=== PATIENT | male | born 1980 | race African-American/Black ===

== ENCOUNTER 2023-11-05 22:10 | Emergency (ER) | payer MEDICAID ==
[~2023-11-05] VITALS: Ht 182.9 cm; Wt 114.0 kg
[~2023-11-05 22:10] MED LIST: keppra; klonopin; risperdal; seroquel
[2023-11-05 22:17] VITALS: TEMP 98.7; O2SAT 96
[2023-11-05 23:25] LABS: BG BASE EXCESS -1.8 mmol/L (-2.0-2.0); BG CARBOXYHEMOGLOBIN 4.2 % (0.5-1.5); BG DEOXYHEMOGLOBIN 4.9 % (0.0-5.0); BG FRACTION INSPIRED OXYGEN 36; BG HCO3 ACT 26.4 mmol/L (22.0-26.0); BG METHEMOGLOBIN 0.1 % (0.0-1.5); BG OXYGEN SATURATION 94.9 % (92.0-98.5); BG OXYHEMOGLOBIN 90.8 % (94.0-97.0); BG PH 7.261 (7.350-7.450); BG PO2 87.8 mmHg (75.0-100.0); BG TOTAL HEMOGLOBIN 14.1 g/dL (12.0-18.0)
[2023-11-05 23:42] LABS: BASOPHILS % 0.6 % (0.0-2.0); DIFFERENTIAL COMMENT 0; HEMATOCRIT. 39.5 % (42.0-52.0); HEMOGLOBIN. 13.5 g/dL (14.0-18.0); MEAN CORPUSCULAR HEMOGLOBIN 34.6 pg (28.0-32.0); MEAN CORPUSCULAR HGB CONC 34.2 g/dL (31.0-37.0); MEAN CORPUSCULAR VOLUME 101.3 fL (80.0-94.0); MEAN PLATELET VOLUME 7.9 fl (7.4-10.4); MONOCYTES % 5.6 % (2.0-8.0); NEUTROPHILS % 40.8 % (40.0-76.0); PLATELET 194 x1000/uL (130-400); RED CELL DISTRIBUTION WIDTH 14.1 % (11.6-14.6)
[2023-11-05] MEDS: SODIUM CHLORIDE 0.9% 1,000 ML IV ONE (23:45)
[2023-11-06 00:01] LABS: ALANINE AMINOTRANSFERASE 40 IU/L (10-49); ALBUMIN 4.2 g/dL (3.2-4.8); ASPARTATE AMINOTRANSFERASE 37 IU/L (<34); BILIRUBIN TOTAL 0.3 mg/dL (0.1-1.0); CALCIUM 8.2 mg/dL (8.7-10.4); CARBON DIOXIDE 25 mEq/L (21-32); CHLORIDE 108 mEq/L (98-107); CREATININE 0.9 mg/dL (0.6-1.3); ETHANOL BLOOD 233 mg/dL (<10); GLUCOSE 104 mg/dL (70-105); POTASSIUM 3.6 mEq/L (3.5-5.1); PROTEIN TOTAL 7.6 g/dL (6.0-8.3); SODIUM 141 mEq/L (136-145); UREA NITROGEN BLOOD 10 mg/dL (9-23)
[2023-11-06 00:47] LABS: TROPONIN I HIGH SENSITIVITY 10 ng/L (3.0-53)
[2023-11-06] MEDS: HYDRALAZINE 20MG/ML VIAL IV ONE ×2 (03:11→04:55)
[2023-11-06 04:30] VITALS: BP 186/122; PULSE 93; RESP 12
== END 2023-11-06 05:25 | disposition left against medical advice (07) ==
LOC: ER 22:10 → CANBEDREQ 11-08 20:47
DX: F10.129 Alcohol abuse with intoxication, unspecified (principal); R41.82 Altered mental status, unspecified; F32.9 Major depressive disorder, single episode, unspecified; F14.10 Cocaine abuse, uncomplicated; Z77.22 Contact with and (suspected) exposure to environmental tobacco smoke (acute) (chronic); V93.89XA Other injury due to other accident on board unspecified watercraft, initial encounter; Y93.89 Activity, other specified; Y90.7 Blood alcohol level of 200-239 mg/100 ml
CPT/HCPCS: 80053; 80320; 85025; 84484; 36415; 82805; 82375; 96361; 99285; 36600; 71045; 70450; 93005; 96374; 96376; J0360; J7030; G0480

== ENCOUNTER 2025-06-17 00:20 | Emergency (ER) | payer MEDICAID ==
[~2025-06-17] VITALS: Ht 170.2 cm; Wt 102.0 kg
[2025-06-17 00:25] VITALS: O2SAT 95
[2025-06-17 00:26] VITALS: BP 152/86; PULSE 88; RESP 18; TEMP 36.7; O2SAT 98
[2025-06-17 01:01] LABS: BASOPHILS % 1.2 % (0.0-2.0); EOSINOPHILS % 3.5 % (0.0-5.0); HEMATOCRIT. 39.7 % (42.0-52.0); HEMOGLOBIN. 13.2 g/dL (14.0-18.0); LYMPHOCYTES % 48.9 % (20.0-50.0); MEAN PLATELET VOLUME 8.0 fl (7.4-10.4); MONOCYTES % 6.8 % (2.0-8.0); NEUTROPHILS % 39.6 % (40.0-76.0); PLATELET 247 x1000/uL (130-400); RED BLOOD CELL COUNT 4.08 mill/uL (4.7-6.1); RED CELL DISTRIBUTION WIDTH 14.6 % (11.6-14.6)
[2025-06-17 01:13] LABS: CREATININE 1.0 mg/dL (0.6-1.3); UREA NITROGEN BLOOD 11 mg/dL (9-23)
[2025-06-17 01:14] LABS: ETHANOL BLOOD 175 mg/dL (<10)
[2025-06-17] MEDS ORDERED: OLANZAPINE 10 MG/VIAL IM ONE (01:30)
[2025-06-17 03:06] LABS: *AMPHETAMINES SCREEN URINE NEGATIVE (NEGATIVE); *BARBITURATES SCREEN URINE NEGATIVE (NEGATIVE); *BENZODIAZEPINES SCREEN URINE NEGATIVE (NEGATIVE); *COCAINE SCREEN URINE NEGATIVE (NEGATIVE); METHADONE URINE SCREEN NEGATIVE (NEGATIVE); OPIATES URINE SCREEN NEGATIVE (NEGATIVE); PHENCYCLIDINE URINE SCREEN NEGATIVE (NEGATIVE)
[2025-06-17 03:07] LABS: CANNABINOID URINE SCREEN NEGATIVE (NEGATIVE); ECSTASY MDMA SCREEN URINE NEGATIVE (NEGATIVE)
== END 2025-06-17 01:45 | disposition home or self-care (01) ==
LOC: ER 00:20
DX: R45.851 Suicidal ideations (principal); I10 Essential (primary) hypertension; J45.909 Unspecified asthma, uncomplicated; Z79.899 Other long term (current) drug therapy
CPT/HCPCS: 36415; 80048; 80305; 80307; 80320; 80329; 85025; 93005; 99281; 99284; G0480

== ENCOUNTER 2025-07-10 14:11 | Emergency (ER) | payer MEDICAID ==
[~2025-07-10] VITALS: Ht 180.3 cm; Wt 109.0 kg
[2025-07-10 15:49] LABS: BASOPHILS % 0.5 % (0.0-2.0); EOSINOPHILS % 1.2 % (0.0-5.0); HEMATOCRIT. 36.7 % (42.0-52.0); HEMOGLOBIN. 12.6 g/dL (14.0-18.0); LYMPHOCYTES % 27.4 % (20.0-50.0); MEAN PLATELET VOLUME 8.4 fl (7.4-10.4); MONOCYTES % 5.8 % (2.0-8.0); NEUTROPHILS % 65.1 % (40.0-76.0); PLATELET 220 x1000/uL (130-400); RED BLOOD CELL COUNT 3.73 mill/uL (4.7-6.1); RED CELL DISTRIBUTION WIDTH 14.1 % (11.6-14.6)
[2025-07-10 15:56] LABS: CREATININE 1.1 mg/dL (0.6-1.3); ETHANOL BLOOD 255 mg/dL (<10); UREA NITROGEN BLOOD 18 mg/dL (9-23)
[2025-07-10 16:13] LABS: *AMPHETAMINES SCREEN URINE NEGATIVE (NEGATIVE); *BARBITURATES SCREEN URINE NEGATIVE (NEGATIVE); *BENZODIAZEPINES SCREEN URINE NEGATIVE (NEGATIVE); *COCAINE SCREEN URINE NEGATIVE (NEGATIVE); METHADONE URINE SCREEN NEGATIVE (NEGATIVE); OPIATES URINE SCREEN NEGATIVE (NEGATIVE)
[2025-07-10 16:14] LABS: CANNABINOID URINE SCREEN PRESUMPTIVE POSITIVE (NEGATIVE); ECSTASY MDMA SCREEN URINE NEGATIVE (NEGATIVE); PHENCYCLIDINE URINE SCREEN NEGATIVE (NEGATIVE)
[2025-07-11] MEDS: OLANZAPINE 10 MG/VIAL IM ONE (05:39)
[2025-07-11] MEDS: LORAZEPAM 2MG/ML UD SYRINGE IM NR (05:39)
[2025-07-11] MEDS: DIPHENHYDRAMINE 50MG/ML VIAL IM ONE (05:39)
[2025-07-11 06:30] VITALS: O2SAT 99
[2025-07-11 10:15] VITALS: BP 137/82; PULSE 78; RESP 18; TEMP 36.8; O2SAT 99
== END 2025-07-11 10:32 | disposition home or self-care (01) ==
LOC: ER 14:11
DX: R45.851 Suicidal ideations (principal); U07.1 COVID-19; F10.129 Alcohol abuse with intoxication, unspecified; I10 Essential (primary) hypertension; J45.909 Unspecified asthma, uncomplicated; Z79.899 Other long term (current) drug therapy; Y90.9 Presence of alcohol in blood, level not specified
CPT/HCPCS: 80305; 80048; 80307; 80329; 80320; 85025; 36415; 99291; 87426; 96372; J3490; J1200; J2060; Z7610 ×2; 81025; 99284; G0480